=== PATIENT | female | born 1995 | race Asian ===

== ENCOUNTER 2016-10-11 19:02 | Emergency (ER) | payer BC ==
[2016-10-11] MEDS ORDERED: CEPHALEXIN 250 MG CAPSULE PO STA (20:26)
[2016-10-11] MEDS ORDERED: SULFAMETH/TRIMETH DS 800/160 MG TABLET PO STA (20:26)
[2016-10-11] MEDS ORDERED: CEPHALEXIN 250 MG CAPSULE PO ONE (20:31)
[2016-10-11] MEDS ORDERED: SULFAMETH/TRIMETH DS 800/160 MG TABLET PO ONE (20:31)
== END 2016-10-11 20:38 | disposition home or self-care (01) ==
DX: L03.313 Cellulitis of chest wall (principal); N61.0 Mastitis without abscess; F17.200 Nicotine dependence, unspecified, uncomplicated
CPT/HCPCS: 99283; A9270